=== PATIENT | female | born 1980 | race Asian ===

== ENCOUNTER → 2016-10-12 | Outpatient (CLI) | payer BC ==
[2016-10-12 13:45] LABS: URINE APPEARANCE CLEAR (CLEAR); URINE BILIRUBIN NEG (NEG); URINE COLOR YELLOW; URINE NITRITE NEG (NEG); URINE SPECIFIC GRAVITY 1.017 (1.000-1.030); UROBILINOGEN NEG (NEG)
[2016-10-12 13:48] LABS: MANUAL MICROSCOPIC REQUIRED? NO; REVIEW REQ? NO
== END | disposition home or self-care (01) ==
LOC: C.LABSPEC 12:22
PROVIDERS: ATTEND Obstetrics & Gynecology
DX: Z34.91 Encounter for supervision of normal pregnancy, unspecified, first trimester (principal)

== ENCOUNTER → 2016-10-26 | Outpatient (CLI) | payer BC ==
--- NOTE | 2016-10-26 16:30 | DIAGNOSTIC IMAGING REPORT ---
Limited ultrasound LIMITED (US) CLINICAL HISTORY: O02.1 Missed Viability ( R 8 weeks, no heart active absent heart tones TECHNIQUE: Real-time ultrasound COMPARISON STUDY: None FINDINGS: Intrauterine gestational sac with a pole is present. Despite several times, a heart beat could not be identified. There is no significant motion. gestational age is approximate 7.5 weeks. The ovaries appear unremarkable. IMPRESSION: 1. Intrauterine gestational sac with an associated pole. 2. No heart peak could be determined or confirmed. 3. The appearance is consistent with demise Electronically signed by: Pablo David M.D. 10/26/2016 4:28 PM Dictated Date/Time: 10/26/2016 4:25 PM
== END | disposition home or self-care (01) ==
LOC: C.ULTR 15:34
PROVIDERS: ATTEND Obstetrics & Gynecology
DX: O02.1 Missed abortion (principal)

== ENCOUNTER → 2016-10-26 | Outpatient (CLI) | payer BC | END | disposition home or self-care (01) | LOC: C.PAPS 09:47 | PROVIDERS: ATTEND Obstetrics & Gynecology | DX: Z34.91 Encounter for supervision of normal pregnancy, unspecified, first trimester (principal) ==

== ENCOUNTER → 2016-10-26 | Outpatient (CLI) | payer BC ==
[2016-10-29 14:14] LABS: CHLAMYDIA TRACH RNA*** NOT DETECTED (NOT DETECTED); GC (NEIS GONORRHOEAE)RNA** NOT DETECTED (NOT DETECTED)
== END | disposition home or self-care (01) ==
LOC: C.LABSPEC 17:09
PROVIDERS: ATTEND Obstetrics & Gynecology
DX: Z34.91 Encounter for supervision of normal pregnancy, unspecified, first trimester (principal)

== ENCOUNTER 2020-06-06 07:52 | Inpatient (IN) ==
[2020-06-06 09:38] LABS: Hematocrit (blood only) 40.1 % (37-47); Hemoglobin 13.9 g/dL (12.0-16.0); Mean Corpuscular Hemoglobin 34.5 pg (25-34); Mean Corpuscular Volume 99.5 fL (80-100); Mean Platelet Volume 10.5 fL (7.4-10.4); Platelet Count 164 K/uL (130-400); RDW Coefficient of Variation 13.9 % (11.5-14.5); RDW Standard Deviation 50.6 fL (36.4-46.3); Red Blood Count 4.03 M/uL (4.2-5.4); White Blood Count 6.46 K/uL (4.8-10.8)
[2020-06-06 09:43] LABS: Mean Corpuscular Hgb Conc 34.7 g/dL (32-36)
--- NOTE | 2020-06-06 09:44 | History & Physical Report ---
Date of Service June 06, 2020 Assessment & Plan Admission and Anticipated Discharge Date Admission Date: June 06, 2020 IUP at 39 + weeks with well controlled GDM in early labor with moderate bloody show. will admit and walk for now because cervix is still too posterior to AROM. check blood sugar bedside will have epidural analgesia when painful. anticipate vaginal History of Present Illness Primary Care Provider: Axel Lindsey MD Patient is a 39 yo female EDC 06/10/20 who presents with regular contractions that are every 7 minutes but are painful accompanied by increased vaginal bleeding. (-)SPROM GBS (-) was complicated by diet controlled GDM. There was a low lying placenta noted on the anatomy scan but this resolved by 28 weeks. Allergies Allergy/AdvReac Type Severity Reaction Status Date / Time No Known Allergies Allergy Verified 06/05/20 10:50 Home Medications Home Medications Medication Instructions Recorded Confirmed Type prenat.vits,ermelinda,[id number] 1 tab PO DAILY 10/30/19 06/05/20 History acetone (urine) test #50 ea 01/21/20 06/05/20 Rx blood-glucose meter #1 ea 01/21/20 06/05/20 Rx blood sugar diagnostic #360 ea 02/15/20 06/05/20 Rx lancets #360 ea 02/15/20 06/05/20 Rx omega-3 fatty acids PO 04/18/20 06/05/20 History Patient History Medical History Fibroid uterus Hx of varicella Miscarriage Shingles Surgical History [place] teeth removed Family History Other No pertinent family history Social History Smoking Status: Never smoker Hx Alcohol Use: No Hx Substance Use: No Preferred Language: Syriac Communication Ability: Effective Communication Ability Comment: denies need for superintendent radio communications Beliefs That Will Affect Care: None marital status: marital status details: Nash Leo (37) [phone] Current Living Situation: Spouse and Family Current Living Situation Comment: and son current occupational status: employed current occupation: Faculty Assistive Devices: Glasses Review of Systems All systems reviewed & are unremarkable except as noted in HPI & below Physical Exam Constitutional: WD/WN, vitals as above Respiratory: normal respiratory effort, lungs clear to auscultation Cardiovascular: RRR, no murmur, no edema Gastrointestinal (Abdomen): normal bowel sounds, soft, nontender, no h epatosplenomegaly Psychiatric: A+Ox3, euthymic affect Genitourinary: OB Exam Abdomen: + vertex, + estimated weight (7-8 pounds) and + regular contractions (approx every 7 minutes) Manual OB Exam: + cervical dilation 4 cm, + cervical effacement 100% and + station (posterior) 0 OB Exam Monitor Tracing: + external FHT monitor used, + external uterine monitor used, + category I and + normal FHT variability Results & Data ([facility]) Vital Signs (Past 12 Hours) Vital Signs Temp Pulse Resp BP 06/06/20 08:00 98.2 F 18 06/06/20 07:57 75 119/69 Coding Level of Care Code None
[2020-06-06] MEDS: LACTATED RINGER'S 1,000 ML IV PRN ×3 (13:36→17:30)
[2020-06-06] MEDS ORDERED: ePHEDrine sulfate 50 MG/ML AMP ONE (13:53)
[2020-06-06] MEDS ORDERED: BUPIVACAINE 0.25% 30 ML VIAL ONE (13:54)
[2020-06-06] MEDS ORDERED: fentaNYL citrate 100 MCG/2 ML VIAL ONE (13:54)
[2020-06-06] MEDS ORDERED: fentaNYL 2MCG/ML ROPIV 1.25MG/ML 100 ML BAG EPI ONE (13:55)
--- NOTE | 2020-06-06 14:22 | Anesthesiology Consultation ---
Date of Service June 06, 2020 Assessment & Plan (1) Encounter for pre-operative examination: Chart Review Chart Review: Patient NOT seen in Pre Admission Testing and Acceptable Risk for Labor Epidural Consults Requested none ASA ASA3 Proposed Anesthesia Anesthesia Type: Labor Epidural Risk / Benefits Reviewed With: PT / POA / Parent / Guardian, Accepts Plan and Informed Consent Obtained History Height/Weight Height: 5 ft 1 in Weight: 66.224 kg Allergies Allergy/AdvReac Type Severity Reaction Status Date / Time No Known Allergies Allergy Verified 06/05/20 10:50 Medications Home Medications Medication Instructions Recorded Confirmed Last Taken prenat.vits,ermelinda,[id number] 1 tab PO DAILY 10/30/19 06/05/20 Unknown acetone (urine) test #50 ea 01/21/20 06/05/20 Unknown blood-glucose meter #1 ea 01/21/20 06/05/20 Unknown blood sugar diagnostic #360 ea 02/15/20 06/05/20 Unknown lancets #360 ea 02/15/20 06/05/20 Unknown omega-3 fatty acids PO 04/18/20 06/05/20 Unknown Active Medications Generic Name Dose Route Start Last Admin Trade Name Freq PRN Reason Stop Dose Admin Lactated Ringer's 1,000 mls @ 125 mls/hr 06/06/20 09:12 06/06/20 14:33 Lr IV 06/08/20 09:11 125 mls/hr .Q8H PRN Administration L&D Protocol Protocol NPO Date Last Intake of Fluids: 06/06/20 Time Last Intake of Fluids: 14:20 Date Last Intake of Solids: 06/06/20 Time Last Intake of Solids: 07:00 Past Medical History Medical History Fibroid uterus Hx of varicella Miscarriage Shingles Exercise / Class Metabolic Activity II 4-5 Yardwork/Stairs/Walk up hill Past Family History Family History Other No pertinent family history Past Surgical History Surgical History [place] teeth removed Past Anesthesia History No Hx of Anesthesia Complications History of PONV No Hx of PONV Social History Smoking Status: Never smoker Hx Alcohol Use: No Hx Substance Use: No Review of Systems Negative for chest pain or shortness of breath. Patient denies history of abnormal bleeding or bleeding disorder. Patient denies active use of anticoagulants other than low dose aspirin. Patient denies numbness, tingling or weakness in lower extremities. Physical Exam Vital Signs Last Vital Signs Temp 36.6 C 06/06/20 14:00 Pulse 75 06/06/20 14:25 Resp 18 06/06/20 14:00 BP 115/65 06/06/20 14:10 Pulse Ox 99 06/06/20 14:25 Constitutional not obese (gravid) ENMT Mouth: no TMJ abnormality and oral opening not small Thyromental Distance: > or= 3.5 Finger Breadths Mallampati Class: II Neck normal visual inspection; neck extension not limited Respiratory normal respiratory effort Auscultation: lungs clear to auscultation bilaterally Cardiovascular Rate/Rhythm: regular rate and regular rhythm Heart Sounds: no murmur Neurologic moves all extremities Motor/Sensory: no sensory deficit Psychiatric Orientation: alert and oriented x 3 Testing Laboratory Results 06/06/20 09:19 06/06/20 11:18 POC Glucose 100 H
[2020-06-06] MEDS ORDERED: NALOXONE HCL 0.4 MG/1 ML VIAL/CARP IV PRN (15:00)
[2020-06-06] MEDS ORDERED: ePHEDrine sulfate 50 MG/ML AMP IV PRN (15:00)
[2020-06-06] MEDS ORDERED: DiphenhydrAMINE HCL 50 MG/ML VIAL IV PRN (15:00)
[2020-06-06] MEDS ORDERED: ONDANSETRON INJ 2 MG/ML 2 ML VIAL IV PRN ×2 (15:00→15:55)
[2020-06-06] MEDS ORDERED: fentaNYL 2MCG/ML ROPIV 1.25MG/ML 100 ML BAG EPI PRN (15:00)
[2020-06-06] MEDS ORDERED: NALOXONE HCL 1 MG in SODIUM CHLORIDE 0.9% 1000ML 1,000 ML IV PRN (15:00)
--- NOTE | 2020-06-06 15:55 | Labor Progress Brief Note ---
Date of Service June 06, 2020 Subjective Reason For Note: Routine Evaluation Assessment & Plan (1) Gestational diabetes mellitus (GDM) affecting second : Progressing well. Epidural placed. Cat 1 tracing (2) Supervision of normal intrauterine in multigravida: (3) Advanced maternal age (AMA) in : Admission and Anticipated Discharge Date Admission Date: June 06, 2020 Physical Exam Genitourinary: OB Exam Abdomen: + vertex Manual OB Exam: + cervical dilation 7 cm, + cervical effacement 90%, + station -1 and + amniotic fluid clear and bloody OB Exam Monitor Tracing: + external FHT monitor used, + external uterine monitor used, + category I and + normal FHT variability Results & Data ([facility]) Vital Signs (Past 12 Hours) Vital Signs Temp Pulse Resp BP Pulse Ox 06/06/20 15:51 88 113/59 L 06/06/20 15:50 90 97 06/06/20 15:49 88 112/59 L 06/06/20 15:47 82 109/55 L 06/06/20 15:46 90 114/56 L 06/06/20 15:45 91 H 97 06/06/20 15:41 78 110/56 L 06/06/20 15:40 75 98 06/06/20 15:39 68 111/60 06/06/20 15:37 90 99/54 L 06/06/20 15:35 83 107/59 L 99 06/06/20 15:33 75 105/55 L 06/06/20 15:31 76 103/56 L 06/06/20 15:30 77 98 06/06/20 15:29 75 105/58 L 06/06/20 15:27 77 18 105/55 L 06/06/20 15:25 88 105/59 L 98 06/06/20 15:23 78 102/55 L 06/06/20 15:21 78 106/58 L 06/06/20 15:20 80 98 06/06/20 15:19 75 108/57 L 06/06/20 15:17 89 101/55 L 06/06/20 15:15 86 105/57 L 98 06/06/20 15:13 75 101/55 L 06/06/20 15:11 88 101/58 L 06/06/20 15:10 88 109/58 L 99 06/06/20 15:07 80 96/52 L 06/06/20 15:05 85 99/51 L 98 06/06/20 15:03 77 100/55 L 06/06/20 15:02 85 111/56 L 06/06/20 15:00 84 142/59 H 99 06/06/20 14:57 83 135/71 06/06/20 14:55 80 98 06/06/20 14:50 87 99 06/06/20 14:45 83 100 06/06/20 14:40 88 99 06/06/20 14:37 85 91 06/06/20 14:35 74 100 06/06/20 14:30 76 98 06/06/20 14:25 75 99 06/06/20 14:16 72 98 06/06/20 14:11 72 98 06/06/20 14:10 72 115/65 06/06/20 14:00 36.6 C 70 18 115/65 97 06/06/20 12:57 18 06/06/20 11:16 81 111/55 L 06/06/20 08:40 18 06/06/20 08:00 36.8 C 18 06/06/20 07:57 75 119/69 Coding Level of Care Code None Diagnoses Gestational diabetes mellitus (GDM) affecting second O24.419 Supervision of normal intrauterine in multigravida Z34.80 Advanced maternal age (AMA) in
[2020-06-06] MEDS: OXYTOCIN 30 UNITS/500 ML BAG IV PRN ×2 (21:07→22:47)
[2020-06-06] MEDS ORDERED: HYDROCORTISONE ACETATE 25 MG SUPP PR PRN (21:22)
[2020-06-06] MEDS ORDERED: bisacodyL 10 MG SUPP PR PRN (21:22)
[2020-06-06] MEDS ORDERED: ACETAMINOPHEN 325 MG TAB PO PRN (21:22)
[2020-06-06] MEDS ORDERED: OXYTOCIN 30 UNITS/500 ML BAG IV PRN (21:22)
[2020-06-06] MEDS ORDERED: DIPHTHERIA/TETANUS/PERTUSSIS 0.5 ML SYR/VIAL IM ONE (21:22)
[2020-06-06] MEDS ORDERED: BENZOCAINE 20% AER SPR 82.5 GM CAN EXT PRN (21:22)
[2020-06-06] MEDS ORDERED: SUPERCREAM 0.870% 15 GM JAR EXT PRN (21:22)
--- NOTE | 2020-06-06 23:49 | Anesthesia Procedure Note ---
Date of Service June 06, 2020 Anesthesia Post Epidural Note Vital Signs Vital Signs: Temp Pulse Resp BP Pulse Ox 36.7 C 75 18 117/64 96 06/06/20 21:18 06/06/20 23:18 06/06/20 23:03 06/06/20 23:18 06/06/20 21:35 Notes Mental Status: alert / awake / arousable and participated in evaluation Nausea / Vomiting: adequately controlled Pain: adequately controlled Airway Patency, RR, SpO2: stable & adequate BP & HR: stable & adequate Hydration State: stable & adequate Neuraxial Anesthesia: was administered and sensory block is resolving Anesthetic Complications: no major complications apparent and Pt Satisfied with anesthetic care Epidural: Removed without complications and With tip intact Notes: Epidural site clean, dry and intact. No signs of edema, erythema or bruising at insertion site. Pt instructed to request anesthesia if she has residual lower extremity numbness or if she develops lower extremity pain or weakness, back pain or headache.
[2020-06-07] MEDS: IBUPROFEN 600 MG TAB PO PRN ×2 (01:38→09:35)
[2020-06-07 06:43] LABS: Hematocrit (blood only) 38.9 % (37-47); Hemoglobin 12.6 g/dL (12.0-16.0)
--- NOTE | 2020-06-07 08:27 | Obstetrical Progress Note ---
Date of Service June 07, 2020 Assessment & Plan (1) Encounter for care and examination after delivery: 39yo day 1 s/p . Doing well. Routine care Subjective Ambulation: ambulating normally Voiding: no voiding problems Passing Gas:: Yes Diet Tolerance:: regular diet Lochia:: Moderate Feeding Type:: breast feeding Physical Exam Constitutional WD/WN, vitals as above Respiratory normal respiratory effort; no respiratory distress and no labored breathing Gastrointestinal (Abdomen) Inspection/Auscultation: abdomen normal to inspection; abdomen not distended Percussion/Palpation: abdomen soft; abdomen nontender, no guarding and abdomen not rigid Genitourinary OB Exam Abdomen: + fundal height Fundus: + firm and + relation to umbilicus (Below); not tender and not boggy Results & Data ([facility]) Vital Signs (Past 12 Hours) Vital Signs Temp Pulse Pulse Resp BP BP Pulse Ox 06/07/20 06:15 36.7 C 71 16 107/70 06/07/20 03:50 36.8 C 86 18 103/71 06/07/20 00:40 36.7 C 73 18 89/53 L 06/06/20 23:18 36.5 C 75 18 117/64 06/06/20 23:03 75 18 115/63 06/06/20 22:48 89 18 110/66 06/06/20 22:33 74 105/61 06/06/20 22:18 72 18 109/62 06/06/20 22:03 73 18 108/61 06/06/20 21:48 77 18 107/67 06/06/20 21:35 79 96 06/06/20 21:33 78 18 113/62 06/06/20 21:30 85 96 06/06/20 21:25 82 95 06/06/20 21:20 86 96 06/06/20 21:18 36.7 C 80 18 107/56 L 06/06/20 21:15 83 96 06/06/20 21:10 86 112/64 96 06/06/20 21:05 79 96 06/06/20 21:00 79 97 06/06/20 20:56 36.7 C 18 06/06/20 20:55 82 101/60 97 06/06/20 20:50 79 97 06/06/20 20:48 74 91 06/06/20 20:45 76 98 06/06/20 20:41 85 104/62 06/06/20 20:40 75 18 97 06/06/20 20:35 71 98 06/06/20 20:30 80 96
[2020-06-07] MEDS: PRENATAL VITAMIN 1 TAB PO SCH (09:35)
[2020-06-07] MEDS: FERROUS SULFATE 325 MG TAB PO SCH (09:35)
[2020-06-07] MEDS: DOCUSATE SODIUM 100 MG CAP PO SCH ×2 (09:35→20:19)
--- NOTE | 2020-06-07 16:26 | Delivery Summary ---
DATE OF OPERATION: 06/06/2020 PROCEDURE: Normal spontaneous vaginal delivery with first degree perineal laceration repair. SURGEON: Chet Dodson MD. PREOPERATIVE DIAGNOSES: 1. Single intrauterine at 39 weeks 3 days gestational age. 2. Diet-controlled gestational diabetes. 3. Advanced maternal age. POSTOPERATIVE DIAGNOSES: 1. Single intrauterine at 39 weeks 3 days gestational age. 2. Diet-controlled gestational diabetes. 3. Advanced maternal age. 4. Status post procedure. ESTIMATED BLOOD LOSS: 200 mL DRAINS: None. FLUIDS: Continuous lactated ringer. URINE OUTPUT: 300 mL via straight catheterization. COMPLICATIONS: None. FINDINGS: Viable female infant with weight pending and Apgars 8 and 9 at 1 and 5 minutes respectively. DESCRIPTION OF PROCEDURE: The patient progressed to 10 cm dilated, 100% effaced, +2 station, pushed over intact perineum with epidural anesthesia and delivered a viable female with weight and Apgars as noted above. Head of delivered in HANNAH position, rest into right transverse. No nuchal cord was noted. Body and shoulders quickly followed. was noted to have good tone upon delivery with attempted cries at 45-second delay cord clamping was initiated, after which the cord was double clamped and cut. became vigorous soon after cord clamping. Cord blood was then obtained. Attention was then turned to deliver the placenta, which was delivered intact with 3-vessel cord, gentle cord traction. On inspection of perineum, vagina, and cervix, there was noted to be a small first-degree laceration, which was repaired with a single interrupted stitch. Needle, sponge and instrument counts were correct at the completion of the case. Both mother and were stable in the immediate post-delivery period. I attest to the content of the Intraoperative Record and any orders documented therein. Any exception s are noted below.
[2020-06-07] MEDS ORDERED: bisacodyL 5 MG TABEC PO SCH (20:00)
[2020-06-08] MEDS: DOCUSATE SODIUM 100 MG CAP PO SCH (08:46)
[2020-06-08] MEDS: PRENATAL VITAMIN 1 TAB PO SCH (08:46)
[2020-06-08] MEDS: FERROUS SULFATE 325 MG TAB PO SCH (08:46)
--- NOTE | 2020-06-08 08:50 | Obstetrical Progress Note ---
Date of Service June 08, 2020 Assessment & Plan (1) Encounter for care and examination after delivery: stable course wishes to be discharged follow up in 6 weeks Subjective Ambulation: ambulating normally Voiding: no voiding problems Passing Gas:: Yes Diet Tolerance:: regular diet Lochia:: Small Feeding Type:: breast feeding Review of Systems All systems reviewed & are unremarkable except as noted in HPI & below Physical Exam Constitutional WD/WN, vitals as above Psychiatric A+Ox3, euthymic affect Genitourinary OB Exam Abdomen: + fundal height Fundus: + firm and + relation to umbilicus (2 below U) Results & Data ([facility]) Vital Signs (Past 12 Hours) Vital Signs Temp Pulse Resp BP 06/08/20 08:00 97.9 F 76 18 103/68 06/08/20 00:10 97.9 F 88 16 97/62 L
== END 2020-06-08 12:58 | disposition home or self-care (01) | DRG 807 ==
LOC: OPB 07:52 → 4S1 07:54 → 4S2 06-07 00:10